=== PATIENT | female | born 1960 | race Caucasian/White ===

== ENCOUNTER → 2017-11-10 | Outpatient (CLI) | payer MEDICARE, OTHER ==
[~2017-11-10] MED LIST: DICY1TAB26 PO; HYDR10SO PO; MAGN400T20 PO; METF500 PO; PANT40IN3; TOPA200T4 PO; VICT18IN SQ; ZOFR4TAB3 SL
--- NOTE | 2017-11-10 10:55 | RADRPT ---
EXAM DATE/TIME: 11/10/2017 00:00 [place] COMPARISON: No previous studies available for comparison. INDICATIONS : Evaluate for dysphagia. FLUORO TIME: 1.3 minutes IMAGE COUNT: ? CONTRAST: Dose as prescribed by speech pathologist. MEDICAL HISTORY : CVA,Gastroesophageal reflux disease. Renal calculi. Diabetes. SURGICAL HISTORY : Cholecystectomy. Exploratory laproscopy. Left ovarian cyst. ENCOUNTER: Initial ACUITY: 1 day PAIN SCORE: 0/10 LOCATION: BA swallow. FINDINGS: A modified barium swallow was performed with speech pathology. Patient was given a variety of liquids to swallow. Patient is able to swallow the variety of liquids without difficulty. There was no penetration or asp iration noted. For a full detailed report, see report by the speech pathologist. CONCLUSION: Unremarkable exam. Dmitriy Chappell MD on November 10, 2017 at 10:53 Board Certified Radiologist. This report was verified electronically.
== END ==
LOC: HRAD 09:38
PROVIDERS: ATTEND Internal Medicine Gastroenterology
DX: R09.89 Other specified symptoms and signs involving the circulatory and respiratory systems (principal)
CPT/HCPCS: 74230; 92611; G8996; G8997; G8998